=== PATIENT | male | born 1970 | race Two or more races ===

== ENCOUNTER 2016-06-11 13:30 | Emergency (ER) | payer SELFPAY ==
[~2016-06-11] VITALS: Ht 175.3 cm; Wt 77.3 kg
[2016-06-11] MEDS ORDERED: MORPHINE SULFATE 4 MG/ML, 1ML IVPush PRN (15:30)
[2016-06-11] MEDS ORDERED: ASPIRIN 81 MG TABLET CHEW PO ONE (15:30)
[2016-06-11] MEDS ORDERED: NITROGLYCERIN SINGLE TAB 0.4 MG SL PRN (15:30)
[2016-06-11] MEDS ORDERED: ONDANSETRON 2MG/ML, 2ML IVPush ONE (15:30)
[2016-06-11] MEDS ORDERED: MORPHINE SULFATE 4 MG/ML, 1ML ONE (15:33)
[2016-06-11] MEDS ORDERED: ONDANSETRON 2MG/ML, 2ML ONE (15:34)
[2016-06-11] MEDS ORDERED: ASPIRIN 81 MG TABLET CHEW ONE (15:34)
[2016-06-11] MEDS ORDERED: NITROGLYCERIN SINGLE TAB 0.4 MG SL ONE (15:34)
[2016-06-11 15:59] LABS: ASPARTATE AMINO TRANSFERASE 18 U/L (15-37); BLOOD UREA NITROGEN 15 mg/dL (7-18)
[2016-06-11 16:04] LABS: IS PT STATUS REG ER OR PRE ER? YES
[2016-06-11 16:05] VITALS: BP 119/82
== END 2016-06-11 17:16 | disposition home or self-care (01) ==
LOC: ED 16:41
DX: R07.2 Precordial pain (principal)
CPT/HCPCS: 36415; 71010; 80053; 83605; 84484; 85025; 93005; 96374; 96375; 99285; J2405